=== PATIENT | female | born 1985 | race American Indian/Alaskan Native ===

== ENCOUNTER 2018-03-08 16:16 | Emergency (ER) | payer MEDICAID, OTHER ==
--- NOTE | 2018-03-08 16:52 | ED PDOC ---
Arrival/HPI - General Historian: Patient <Joce Vazquez - Last Filed: 03/08/18 17:47> <Katherine Bach - Last Filed: 03/08/18 20:00> - General Time Seen by Provider: 03/08/18 16:50 - History of Present Illness Narrative History of Present Illness (Text): 03/08/18 16:52 32 y/o female, no significant pmh, nkda, c/o painful abscess on the lower buttock region x 4 days. Pt. stated that it started off as a small pimple, been growing, painful to sit, no fever or chills, no night sweat, no numbness or tingling. (Joce Vazquez) Past Medical History - Provider Review Nursing Documentation Reviewed: Yes <Joce Vazquez - Last Filed: 03/08/18 17:47> Family/Social History - Physician Review Nursing Documentation Reviewed: Yes Family/Social History: Unknown Family HX <Joce Vazquez - Last Filed: 03/08/18 17:47> Allergies/Home Meds <Joce Vazquez - Last Filed: 03/08/18 17:47> <Katherine Bach - Last Filed: 03/08/18 20:00> Allergies/Adverse Reactions: Allergies shrimp Allergy (Verified 03/08/18 17:03) ITCHING Review of Systems - Review of Systems Constitutional: absent: Fatigue, Fevers Eyes: absent: Vision Changes ENT: absent: Hearing Changes Respiratory: absent: SOB, Cough Cardiovascular: absent: Chest Pain Gastrointestinal: absent: Abdominal Pain, Diarrhea, Nausea, Vomiting Skin: Skin Lesions, Abscess. absent: Rash, Pruritis, Laceration, Ulcer, Cellulitis Neurological: absent: Headache, Dizziness Psychiatric: absent: Anxiety, Depression, Suicidal Ideation <Joce Vazquez - Last Filed: 03/08/18 17:47> Physical Exam Vital Signs Reviewed: Yes Temperature: Afebrile Blood Pressure: Normal Pulse: Regular Respiratory Rate: Normal Appearance: Positive for: Well-Appearing, Non-Toxic, Comfortable Pain Distress: Moderate Mental Status: Positive for: Alert and Oriented X 3 - Systems Exam Head: Present: Atraumatic, Normocephalic Pupils: Present: PERRL Extroacular Muscles: Present: EOMI Conjunctiva: Present: Normal Mouth: Present: Moist Mucous Membranes Neck: Present: Normal Range of Motion Respiratory/Chest: Present: Clear to Auscultation, Good Air Exchange. No: Respiratory Distress, Accessory Muscle Use Cardiovascular: Present: Regular Rate and Rhythm, Normal S1, S2. No: Murmurs Abdomen: No: Tenderness, Distention, Peritoneal Signs Back: Present: Normal Inspection Upper Extremity: Present: Normal Inspection. No: Cyanosis, Edema Lower Extremity: Present: Normal Inspection. No: Edema Neurological: Present: GCS=15, CN II-XII Intact, Speech Normal, Motor Func Grossly Intact, Gait Normal, Memory Normal Skin: Present: Warm, Dry, Rashes (visible palpable fluctuant abscess noted on the pilnoidal region approx. [id number] diameter, no streaking or cellulitis. ), Normal Color Psychiatric: Present: Alert, Oriented x 3, Normal Insight, Normal Concentration <Joce Vazquez - Last Filed: 03/08/18 17:47> Vital Signs Temp Pulse Resp BP Pulse Ox 03/08/18 18:39 93 H 18 118/82 100 03/08/18 16:59 98.1 F 81 18 121/84 100 Medical Decision Making <Joce Vazquez - Last Filed: 03/08/18 17:47> <Katherine Bach - Last Filed: 03/08/18 20:00> ED Course and Treatment: 03/08/18 17:14 -keflex/bactrim/percocet 03/08/18 17:16 -Urine hcg is negative -Wound laceration Sensation intact, motor 5/5, wound irrigated with normal saline 500cc, clean with Betadine, sterile procedure as usual, 1% lidocaine with 1 mL with local infiltration, #11 blade incision, drained approx. 15-20cc of purulant abscess, hemostasis obtained, 1/2" iodofoam packing inserted and xerofoam gauze dressing , sensation intact, motor 5/5, minimal blood loss less than 5cc, pt. tolerated the procedure well with no complication. Pain decreased and pt. feel much better. Total procedure time 25 minutes 03/08/18 17:49 -Laceration wound discharge -Discharge home with keflex, bactrim ds, motrin, education on to keep the dressing and wound clean and dry for 2 days then return to the ER in 2 days for wound check/packing/dressing change, follow up with your own primary care doctors and specialist within 3 days, return to ER for any concerning/worsening signs or symptoms (Joce Vazquez) - Medication Orders Current Medication Orders: Discontinued Medications Cephalexin Monohydrate (Keflex) 500 mg PO STAT STA PRN Reason: Protocol Stop: 03/08/18 17:21 Last Admin: 03/08/18 17:32 Dose: 500 mg Oxycodone/Acetaminophen (Percocet 5/325 Mg Tab) 1 tab PO STAT STA Stop: 03/08/18 17:21 Last Admin: 03/08/18 17:31 Dose: 1 tab MAR Pain Assessment Document 03/08/18 17:31 EQ (Rec: 03/08/18 17:31 EQ [id number]) Pain Reassessment Is this a pain reassessment? No Sleep Is patient sleeping during reassessment? No Presence of Pain Presence of Pain Yes Trimethoprim/Sulfamethoxazole (Bactrim Ds Tab) 1 tab PO STAT STA PRN Reason: Protocol Stop: 03/08/18 17:21 Last Admin: 03/08/18 17:31 Dose: 1 tab - PA / TISSUE TECHNOLOGIST / Resident Statement / has reviewed & agrees with the documentation as recorded. <Joce Vazquez - Last Filed: 03/08/18 17:47> - PA / TISSUE TECHNOLOGIST / Resident Statement / has reviewed & agrees with the documentation as recorded. <Katherine Bach - Last Filed: 03/08/18 20:00> Disposition/Present on Arrival - Present on Arrival Any Indicators Present on Arrival: No History of DVT/PE: No History of Uncontrolled Diabetes: No Urinary Catheter: No History of Decub. Ulcer: No - Disposition Have Diagnosis and Disposition been Completed?: Yes Disposition Time: 17:18 Patient Plan: Discharge <Joce Vazquez - Last Filed: 03/08/18 17:47> <Katherine Bach - Last Filed: 03/08/18 20:00> - Disposition Diagnosis: Abscess Disposition: HOME/ ROUTINE Condition: IMPROVED Additional Instructions: -Discharge home with keflex, bactrim ds, motrin, education on to keep the dressing and wound clean and dry for 2 days then return to the ER in 2 days for wound check/packing/dressing change, follow up with your own primary care doctors and specialist within 3 days, return to ER for any concerning/worsening signs or symptoms Prescriptions: Cephalexin [Keflex] 500 mg PO QID #40 capsule Ibuprofen [Motrin Tab] 600 mg PO QID PRN #30 tab PRN Reason: Other Sulfamethoxazole/Trimethoprim [Bactrim Ds Tablet] 1 each PO BID #20 tablet Referrals: Vince Alejandra MD [Medical Doctor] - [place] up [place] [facility] [place] - Follow up with primary Forms: WORK NOTE
[2018-03-08 17:00] VITALS: RESP 18; TEMP 98.1; O2SAT 100
[2018-03-08 17:03] VITALS: BMI 29.9
[2018-03-08] MEDS ORDERED: Oxycodone/Acetaminophen 5/325 mg Tab PO STA (17:20)
[2018-03-08] MEDS ORDERED: Tmp-Smz 800 mg-160 mg DS Tab PO STA (17:20)
[2018-03-08 18:51] VITALS: BP 118/82; PULSE 93
== END 2018-03-08 18:39 | disposition home or self-care (01) ==
LOC: ED 16:16
DX: L05.01 Pilonidal cyst with abscess (principal)

== ENCOUNTER 2018-03-10 11:35 | Emergency (ER) | payer MEDICAID, OTHER ==
[2018-03-10 11:36] VITALS: BMI 29.9
[2018-03-10 11:43] VITALS: TEMP 98.7; O2SAT 100
--- NOTE | 2018-03-10 12:44 | ED PDOC ---
Arrival/HPI - General Chief Complaint: Wound Check Time Seen by Provider: 03/10/18 12:30 Historian: Patient - History of Present Illness Narrative History of Present Illness (Text): 03/10/18 14:46 32-year-old female presents today for wound check of an abscess to the buttocks. Patient states she was seen in the emergency room 2 days ago and had incision and drainage. Patient states she is feeling better. Patient states taking antibiotics as prescribed. Patient denies fevers or chills. Patient complaining of minimal pain to the abscess site. No other complaints Past Medical History - Provider Review Nursing Documentation Reviewed: Yes - Travel History Have you recently traveled outside [place] w/in the past 3 mons?: No - Infectious Disease Hx of Infectious Diseases: None - Reproductive Menopause: No - Pulmonary Hx Respiratory Disorders: No - Neurological Hx Neurological Disorder: No - HEENT Hx HEENT Disorder: No - Hematological/Oncological Hx Blood Disorders: No - Integumentary Hx Eczema: Yes - Psychiatric Hx Substance Use: Yes (marijuana) - Anesthesia Hx Anesthesia: No Family/Social History - Physician Review Nursing Documentation Reviewed: Yes Family/Social History: Unknown Family HX Smoking Status: Light Smoker < 10 Cigarettes Daily Hx Alcohol Use: Yes (weekly) Hx Substance Use: Yes (marijuana) Allergies/Home Meds Allergies/Adverse Reactions: Allergies shrimp Allergy (Verified 03/08/18 17:03) ITCHING Review of Systems - Review of Systems Constitutional: absent: Fatigue, Fevers Respiratory: absent: SOB, Cough Cardiovascular: absent: Chest Pain, Palpitations Gastrointestinal: absent: Abdominal Pain, Nausea, Vomiting Skin: Abscess Neurological: absent: Headache, Dizziness Psychiatric: absent: Anxiety, Depression Physical Exam Vital Signs Reviewed: Yes Vital Signs Temp Pulse Resp BP Pulse Ox 03/10/18 12:59 70 16 120/68 03/10/18 11:43 98.7 F 76 18 101/71 100 Temperature: Afebrile Blood Pressure: Normal Pulse: Regular Respiratory Rate: Normal Appearance: Positive for: Well-Appearing, Non-Toxic, Comfortable Pain Distress: None Mental Status: Positive for: Alert and Oriented X 3 - Systems Exam Head: Present: Atraumatic Respiratory/Chest: Present: Clear to Auscultation Cardiovascular: Present: Regular Rate and Rhythm Upper Extremity: Present: Normal ROM Neurological: Present: GCS=15, Speech Normal Skin: Present: Warm, Dry, Normal Color, Abscess (buttock crease; there is packing in placed; + induration, minimal tenderness; no purulent discharge. ) Psychiatric: Present: Alert, Oriented x 3 Medical Decision Making ED Course and Treatment: 03/10/18 Patient is nontoxic well-appearing in no distress. Vital signs are stable. packing removed from buttock abscess; no additional purulent discharge noted; dressing placed. Advised patient to continue antibiotics as prescribed and follow-up with the surgeon within the next 2 days. Advised immediate return if symptoms worsen persist or if new concerning symptoms develop. I've advised the patient to do warm compresses frequently. Patient verbalizes understanding of discharge instructions and need for immediate followup. all aspects of this case were discussed the attending of record. impression; abscess, wound check. continue medications as prescribed f/u with pmd and surgeon warm compresses frequently Return immediately if symptoms worsen persist or if new symptoms develop: High fevers, increasing pain, increasing redness, swelling or if any other concerning symptoms develop. Disposition/Present on Arrival - Present on Arrival Any Indicators Present on Arrival: No History of DVT/PE: No History of Uncontrolled Diabetes: No Urinary Catheter: No History of Decub. Ulcer: No History Surgical Site Infection Following: None - Disposition Have Diagnosis and Disposition been Completed?: Yes Diagnosis: Abscess of buttock, Visit for wound check Disposition: HOME/ ROUTINE Disposition Time: 12:30 Patient Plan: Discharge Condition: GOOD Discharge Instructions (ExitCare): Boil (DC) Additional Instructions: Continue antibiotics as prescribed Warm compresses and warm soaks frequently Follow-up with the surgeon within the next 2 days Follow the primary care physician within the next 2 days Return immediately if symptoms worsen persist or if new symptoms develop: High fevers, increasing pain, increasing redness, swelling or if any other concerning symptoms develop. Referrals: Louis Clements MD [Staff Provider] - Follow up with primary Faisal Coker MD [Staff Provider] - Follow up with primary Forms: [employer] (Chilean), WORK NOTE
[2018-03-10 12:59] VITALS: BP 120/68; PULSE 70; RESP 16
== END 2018-03-10 12:59 | disposition home or self-care (01) ==
LOC: ED 11:35
DX: L02.31 Cutaneous abscess of buttock (principal); Z48.89 Encounter for other specified surgical aftercare